=== PATIENT | male | born 1985 | race African-American/Black ===

== ENCOUNTER 2017-07-23 10:33 | Inpatient (IN) | payer OTHER ==
[~2017-07-23] VITALS: Ht 180.3 cm; Wt 120.2 kg
[~2017-07-23 10:33] MED LIST: NKM; ONDANSETRON ODT4 MG ORAL
--- NOTE | 2017-07-23 10:37 | Emergency Room Report ---
History of Present Illness General Chief Complaint: Abdominal Pain Source: Patient, Family Member, EMS Present Illness HPI 31-year-old male brought in by ambulance with nausea and high blood pressure. Patient recently moved here from [place], where he was hospitalized and saw a doctor for "kidney failure" likely due to known high blood pressure. Patient takes hydralazine, nifedipine, labetalol and clonidine as needed for blood pressure greater than 160/80. Patient to call his blood pressure medication this morning except for clonidine. Patient not currently on dialysis. Was told that kidney function at its worse had gone down to 20% however improved to 40% with dieting, exercise and treatment for high blood pressure. Nausea not associated with abdominal pain, diarrhea or vomiting. Per doctor in , serum Creat 2.4 baseline, GFR 41 Allergies: Coded Allergies: No Known Allergies (Unverified , 07/08/12) Patient History Past Medical History: HTN, renal disease, other - renal disease not on HD Past Surgical History: none Pertinent Family History: none Social History: Denies: smoking, alcohol use, drug use Immunizations: UTD Reviewed Nursing Documentation: PMH: Agreed, PSxH: Agreed Nursing Documentation-PMH Hx Hypertension: Yes Review of Systems All Other Systems: negative except mentioned in HPI Physical Exam Vital Signs Date Time Temp Pulse Resp B/P (MAP) Pulse Ox O2 Delivery O2 Flow Rate FiO2 07/23/17 10:28 98.7 80 16 165/111 99 Room Air 98.8 Sp02 EP Interpretation: reviewed, normal General Appearance: normal inspection, well appearing, no apparent distress, alert, GCS 15, non-toxic Head: normocephalic, atraumatic Eyes: bilateral eye PERRL, bilateral eye EOMI ENT: normal ENT inspection, hearing grossly normal, normal pharynx, no angioedema, normal voice, TMs + canals normal, uvula midline, moist mucus membranes Neck: normal inspection, full range of motion, supple, thyroid normal, no meningismus, no bony tend Respiratory: normal inspection, lungs clear, normal breath sounds, no rhonchi, no respiratory distress, no retraction, no accessory muscle use, no wheezing, speaking full sentences Cardiovascular #1: regular rate, rhythm, no edema, no JVD, normal capillary refill Gastrointestinal: normal inspection, normal bowel sounds, non tender, soft, no mass, no peritonitis, non-distended, no guarding, no hernia, no pulsatile mass Genitourinary: no CVA tenderness Musculoskeletal: normal inspection, back normal, normal range of motion, no calf tenderness, pelvis stable, Oskar's Sign negative Neurologic: normal inspection, alert, oriented x3, responsive, thread drawer III-XII nml as tested, motor strength/tone normal, cerebellar normal, normal gait, speech normal Psychiatric: normal inspection, judgement/insight normal, mood/affect normal, no suicidal/homicidal ideation, no delusions Skin: normal inspection, normal color, no rash Lymphatic: normal inspection, no adenopathy Medical Decision Making Diagnostic Impression: Primary Impression: HTN (hypertension) Qualified Codes: I15.0 - Renovascular hypertension Additional Impressions: Nausea CKD (chronic kidney disease) Qualified Codes: N18.9 - Chronic kidney disease, unspecified Hypertensive emergency without congestive heart failure ER Course Blood pressure 180/110 Afebrile Abdomen nonfocal Elevated blood pressure likely due to renal disease Was given IV hydralazine in ER Labs: serum creatine is 2.3, slightly improved from baseline Was given IV labetalol IV hydralazine and by mouth clonidine without much improvement in BP refractory due to known CK D Patient remains asymptomatic Pressure currently 160/[address] Funez, panel admission Telemetry bed, 1:06 PM EKG Diagnostic Results Rate: normal Rhythm: NSR ST Segments: no acute changes ASA given to the pt in ED: No Rhythm Strip Diag. Results EP Interpretation: yes Rate: 79 Rhythm: NSR, no PVC's, no ectopy Chest X-Ray Diagnostic Results Chest X-Ray Diagnostic Results : Chest X-Ray Ordered: Yes # of Views/Limited/Complete: 1 View Indication: Other - nausea EP Interpretation: Yes Interpretation: no consolidation, no effusion, no pneumothorax, no acute cardiopulmonary disease Impression: No acute disease Electronically Signed by: Dr Marv Perez MD Last Vital Signs Date Time Temp Pulse Resp B/P (MAP) Pulse Ox O2 Delivery O2 Flow Rate FiO2 07/23/17 10:28 98.7 80 16 165/111 99 Room Air 98.8 Status: improved Disposition: ADMITTED INPATIENT Condition: Serious MARV PEREZ M.D. Jul 23, 2017 10:37
[2017-07-23 10:46] VITALS: BP 184/118
[2017-07-23] MEDS ORDERED: CATAPRES0.1 MG ORAL (11:20)
[2017-07-23] MEDS ORDERED: HYDRALAZINE HCL50 MG ORAL (11:20)
[2017-07-23] MEDS ORDERED: LABETALOL HCL200 MG ORAL (11:20)
[2017-07-23] MEDS ORDERED: ADALAT10 MG ORAL (11:20)
[2017-07-23] MEDS ORDERED: ALLOPURINOL100 M1 ORAL (11:20)
[2017-07-23 11:21] LABS: BASOPHILS % (AUTO) 1.4 % (0.0-2.0); EOSINOPHILS % (AUTO) 1.2 % (0.0-3.0); HEMATOCRIT 47.5 % (42.0-52.0); HEMOGLOBIN 15.2 G/DL (14.2-18.0); LYMPHOCYTES % (AUTO) 18.4 % (20.0-45.0); MEAN CORPUSCULAR VOLUME 84 FL (80-99); MONOCYTES % (AUTO) 7.1 % (1.0-10.0); NEUTROPHILS % (AUTO) 71.8 % (45.0-75.0); PLATELET COUNT 259 K/UL (150-450); RED BLOOD COUNT 5.68 M/UL (4.70-6.10); RED CELL DISTRIBUTION WIDTH 14.3 % (11.6-14.8); WHITE BLOOD COUNT 8.1 K/UL (4.8-10.8)
[2017-07-23 11:35] LABS: ANION GAP 11 mmol/L (5-15); BLOOD UREA NITROGEN 15 mg/dL (7-18); CALCIUM 9.2 MG/DL (8.5-10.1); CARBON DIOXIDE 24 MMOL/L (21-32); CHLORIDE 104 MMOL/L (98-107); CREATININE 2.3 MG/DL (0.55-1.30); POTASSIUM 3.7 MMOL/L (3.5-5.1); SODIUM 139 MMOL/L (136-145)
[2017-07-23] MEDS ORDERED: Labetalol 5mg/ml 20ml vial IV ONE (11:45)
[2017-07-23 11:52] LABS: ALANINE AMINOTRANSFERASE 29 U/L (12-78); ALBUMIN 3.2 G/DL (3.4-5.0); ALBUMIN/GLOBULIN RATIO 0.8 (1.0-2.7); ALKALINE PHOSPHATASE 107 U/L (46-116); ASPARTATE AMINO TRANSFERASE 17 U/L (15-37); BILIRUBIN,TOTAL 0.5 MG/DL (0.2-1.0); CKMB 1.6 NG/ML (0.0-3.6); CREATINE KINASE 247 U/L (26-308)
--- NOTE | 2017-07-23 11:56 | Diagnostic Imaging Report ---
Indication: Chest pain Technique: One view of the chest Comparison: none Findings: The lungs and pleural spaces are clear. The heart is enlarged. Impression: Cardiomegaly. No acute process
[2017-07-23 11:58] VITALS: BP 168/111
[2017-07-23 13:14] VITALS: BP 163/105
[2017-07-23 14:02] VITALS: BP 157/102
[2017-07-23 16:45] VITALS: BP 148/91
[2017-07-23] MEDS ORDERED: Minoxidil 2.5mg tab ORAL PRN (17:00)
--- NOTE | 2017-07-23 17:01 | Consultation ---
Consult Note Consult Note 31-year-old male brought in by ambulance with nausea and high blood pressure. Patient recently moved here from [place], where he was hospitalized and saw a doctor for "kidney failure" likely due to known high blood pressure. Patient takes hydralazine, nifedipine, labetalol and clonidine as needed for blood pressure greater than 160/80. Patient to call his blood pressure medication this morning except for clonidine. Patient not currently on dialysis. Was told that kidney function at its worse had gone down to 20% however improved to 40% with dieting, exercise and treatment for high blood pressure. Nausea not associated with abdominal pain, diarrhea or vomiting. Per doctor in [place], serum Creat 2.4 baseline, GFR 41 interviewed- MOM present data reviewed . Assessment/Plan CKD HTN OOC Adjust BP meds Kidney ZULMA urine studies SUKHJINDER CARTWRIGHT Jul 23, 2017 17:01
[2017-07-23] MEDS ORDERED: NIFEdipine 10mg cap ORAL SCH ×3 (18:00→20:00)
[2017-07-23 18:41] LABS: APPEARANCE,URINE CLEAR; BILIRUBIN, URINE NEGATIVE (NEGATIVE); COLOR,URINE YELLOW; GLUCOSE, URINE (UA) NEGATIVE (NEGATIVE); KETONES,URINE NEGATIVE (NEGATIVE); LEUKOCYTE ESTERASE ,URINE NEGATIVE (NEGATIVE); NITRITE,URINE NEGATIVE (NEGATIVE); PH,URINE 6 (4.5-8.0); PROTEIN,URINE 4+ (NEGATIVE); UROBILINOGEN,URINE NORMAL MG/DL (0.0-1.0)
[2017-07-23 20:00] VITALS: BP 169/105
--- NOTE | 2017-07-23 20:56 | Cardiology Progress Note ---
Assessment/Plan Assessment/Plan The patient is seen and examined, full consult note will be dictated shortly. Objective Last 24 Hour Vital Signs Date Time Temp Pulse Resp B/P (MAP) Pulse Ox O2 Delivery O2 Flow Rate FiO2 07/23/17 19:06 79 07/23/17 17:35 148/91 07/23/17 16:45 98.2 80 20 148/91 100 Room Air 98.2 07/23/17 14:50 98.8 82 16 157/102 100 Room Air 98.8 07/23/17 14:02 98.8 82 16 157/102 100 Room Air 98.8 07/23/17 13:14 98.8 72 16 163/105 99 Room Air 98.8 07/23/17 11:59 81 168/112 07/23/17 11:58 98.8 83 16 168/111 99 Room Air 98.8 07/23/17 11:28 168/112 07/23/17 11:00 184/118 07/23/17 10:46 98.8 81 16 184/118 99 Room Air 98.8 07/23/17 10:28 98.7 80 16 165/111 99 Room Air 98.8 Laboratory Tests Test 07/23/17 11:00 07/23/17 18:20 White Blood Count 8.1 K/UL (4.8-10.8) Red Blood Count 5.68 M/UL (4.70-6.10) Hemoglobin 15.2 G/DL (14.2-18.0) Hematocrit 47.5 % (42.0-52.0) Mean Corpuscular Volume 84 FL (80-99) Mean Corpuscular Hemoglobin 26.8 PG (27.0-31.0) L Mean Corpuscular Hemoglobin Concent 32.0 G/DL (32.0-36.0) Red Cell Distribution Width 14.3 % (11.6-14.8) Platelet Count 259 K/UL (150-450) Mean Platelet Volume 6.7 FL (6.5-10.1) Neutrophils (%) (Auto) 71.8 % (45.0-75.0) Lymphocytes (%) (Auto) 18.4 % (20.0-45.0) L Monocytes (%) (Auto) 7.1 % (1.0-10.0) Eosinophils (%) (Auto) 1.2 % (0.0-3.0) Basophils (%) (Auto) 1.4 % (0.0-2.0) Sodium Level 139 MMOL/L (136-145) Potassium Level 3.7 MMOL/L (3.5-5.1) Chloride Level 104 MMOL/L (98-107) Carbon Dioxide Level 24 MMOL/L (21-32) Anion Gap 11 mmol/L (5-15) Blood Urea Nitrogen 15 mg/dL (7-18) Creatinine 2.3 MG/DL (0.55-1.30) H Estimat Glomerular Filtration Rate 41.0 mL/min (>60) Glucose Level 102 MG/DL (74-106) Calcium Level 9.2 MG/DL (8.5-10.1) Total Bilirubin 0.5 MG/DL (0.2-1.0) Aspartate Amino Transf (AST/SGOT) 17 U/L (15-37) Alanine Aminotransferase (ALT/SGPT) 29 U/L (12-78) Alkaline Phosphatase 107 U/L (46-116) Total Creatine Kinase 247 U/L (26-308) Creatine Kinase MB 1.6 NG/ML (0.0-3.6) Creatine Kinase MB Relative Index 0.6 Troponin I 0.014 ng/mL (0.000-0.056) Total Protein 7.1 G/DL (6.4-8.2) Albumin 3.2 G/DL (3.4-5.0) L Globulin 3.9 g/dL Albumin/Globulin Ratio 0.8 (1.0-2.7) L Urine Color Yellow Urine Appearance Clear Urine pH 6 (4.5-8.0) Urine Specific [place] 1.020 (1.005-1.035) Urine Protein 4+ (NEGATIVE) H Urine Glucose (UA) Negative (NEGATIVE) Urine Ketones Negative (NEGATIVE) Urine Occult Blood Negative (NEGATIVE) Urine Nitrite Negative (NEGATIVE) Urine Bilirubin Negative (NEGATIVE) Urine Urobilinogen Normal MG/DL (0.0-1.0) Urine Leukocyte Esterase Negative (NEGATIVE) Urine RBC 0-2 /HPF (0 - 0) H Urine WBC 0-2 /HPF (0 - 0) Urine Squamous Epithelial Cells None /LPF (NONE/OCC) Urine Bacteria None /HPF (NONE) Urine Opiates Screen Negative (NEGATIVE) Urine Barbiturates Screen Negative (NEGATIVE) Phencyclidine (PCP) Screen Negative (NEGATIVE) Urine Amphetamines Screen Negative (NEGATIVE) Urine Benzodiazepines Screen Negative (NEGATIVE) Urine Cocaine Screen Negative (NEGATIVE) Urine Marijuana (THC) Screen Positive (NEGATIVE) WILLIAM NICK Jul 23, 2017 20:56
[2017-07-23] MEDS ORDERED: HydrALAZINE 50mg tab ORAL SCH (22:00)
[2017-07-23] MEDS ORDERED: Labetalol 200mg tab ORAL SCH (22:00)
[2017-07-23] MEDS: HydrALAZINE 50mg tab ORAL SCH (22:22)
[2017-07-23] MEDS: cloNIDine 0.2mg Tab ORAL SCH (22:23)
[2017-07-24] VITALS: BP 160/100
[2017-07-24 04:00] VITALS: BP 136/91
[2017-07-24] MEDS: HydrALAZINE 50mg tab ORAL SCH ×3 (06:13→21:47)
[2017-07-24] MEDS: cloNIDine 0.2mg Tab ORAL SCH ×3 (06:14→21:47)
[2017-07-24 08:00] VITALS: BP 154/84
[2017-07-24 08:23] LABS: BASOPHILS % (AUTO) 1.2 % (0.0-2.0); EOSINOPHILS % (AUTO) 2.6 % (0.0-3.0); HEMATOCRIT 44.8 % (42.0-52.0); HEMOGLOBIN 14.6 G/DL (14.2-18.0); LYMPHOCYTES % (AUTO) 24.1 % (20.0-45.0); MEAN CORPUSCULAR VOLUME 84 FL (80-99); NEUTROPHILS % (AUTO) 64.2 % (45.0-75.0); PLATELET COUNT 239 K/UL (150-450); RED BLOOD COUNT 5.33 M/UL (4.70-6.10); WHITE BLOOD COUNT 7.1 K/UL (4.8-10.8)
[2017-07-24] MEDS ORDERED: Allopurinol 100mg Tab ORAL SCH (09:00)
[2017-07-24 09:03] LABS: ALANINE AMINOTRANSFERASE 23 U/L (12-78); ALBUMIN/GLOBULIN RATIO 0.9 (1.0-2.7); ALKALINE PHOSPHATASE 96 U/L (46-116); ANION GAP 7 mmol/L (5-15); ASPARTATE AMINO TRANSFERASE 12 U/L (15-37); BILIRUBIN,TOTAL 0.5 MG/DL (0.2-1.0); BLOOD UREA NITROGEN 15 mg/dL (7-18); CALCIUM 8.6 MG/DL (8.5-10.1); CARBON DIOXIDE 25 MMOL/L (21-32); CHLORIDE 105 MMOL/L (98-107); CHOLESTEROL 135 MG/DL (< 200); CREATINE KINASE 174 U/L (26-308); CREATININE 2.3 MG/DL (0.55-1.30); GAMMA GLUTAMYL TRANSPEPTIDASE 20 U/L (5-85); HDL CHOLESTEROL 38 MG/DL (40-60); PHOSPHORUS 3.4 MG/DL (2.5-4.9); POTASSIUM 3.8 MMOL/L (3.5-5.1); SODIUM 137 MMOL/L (136-145); TRIGLYCERIDES 89 MG/DL (30-150)
--- NOTE | 2017-07-24 10:06 | Nephrology Progress Note ---
Assessment/Plan Problem List: (1) CKD (chronic kidney disease) (2) Hypertensive emergency without congestive heart failure Assessment CKD HTN OOC Plan Adjust BP meds Kidney ZULMA urine studies ? Dc Subjective ROS Limited/Unobtainable: No Objective Objective Last 24 Hour Vital Signs Date Time Temp Pulse Resp B/P (MAP) Pulse Ox O2 Delivery O2 Flow Rate FiO2 07/24/17 08:00 98.1 76 18 154/84 98 Room Air 98.1 07/24/17 06:14 140/78 07/24/17 06:13 140/78 07/24/17 04:00 98.4 78 20 136/91 98 Room Air 98.4 07/24/17 04:00 70 07/24/17 00:00 98.4 72 20 160/100 100 Room Air 98.4 07/24/17 00:00 80 07/23/17 22:23 170/105 07/23/17 22:22 170/105 07/23/17 21:10 79 169/105 07/23/17 20:00 98.2 71 20 169/105 100 Room Air 98.2 07/23/17 20:00 86 07/23/17 19:06 79 07/23/17 17:35 148/91 07/23/17 16:45 98.2 80 20 148/91 100 Room Air 98.2 07/23/17 14:50 98.8 82 16 157/102 100 Room Air 98.8 07/23/17 14:02 98.8 82 16 157/102 100 Room Air 98.8 07/23/17 13:14 98.8 72 16 163/105 99 Room Air 98.8 07/23/17 11:59 81 168/112 07/23/17 11:58 98.8 83 16 168/111 99 Room Air 98.8 07/23/17 11:28 168/112 07/23/17 11:00 184/118 07/23/17 10:46 98.8 81 16 184/118 99 Room Air 98.8 07/23/17 10:28 98.7 80 16 165/111 99 Room Air 98.8 Intake and Output 07/23/17 07/24/17 19:00 07:00 Intake Total 360 ml Balance 360 ml Intake Oral 360 ml # Voids 1 4 Laboratory Tests 07/23/17 11:00: White Blood Count 8.1, Red Blood Count 5.68, Hemoglobin 15.2, Hematocrit 47.5, Mean Corpuscular Volume 84, Mean Corpuscular Hemoglobin 26.8L, Mean Corpuscular Hemoglobin Concent 32.0, Red Cell Distribution Width 14.3, Platelet Count 259, Mean Platelet Volume 6.7, Neutrophils (%) (Auto) 71.8, Lymphocytes (%) (Auto) 18.4L, Monocytes (%) (Auto) 7.1, Eosinophils (%) (Auto) 1.2, Basophils (%) (Auto ) 1.4, Sodium Level 139, Potassium Level 3.7, Chloride Level 104, Carbon Dioxide Level 24, Anion Gap 11, Blood Urea Nitrogen 15, Creatinine 2.3H, Estimat Glomerular Filtration Rate 41.0, Glucose Level 102, Calcium Level 9.2, Total Bilirubin 0.5, Aspartate Amino Transf (AST/SGOT) 17, Alanine Aminotransferase (ALT/SGPT) 29, Alkaline Phosphatase 107, Total Creatine Kinase 247, Creatine Kinase MB 1.6, Creatine Kinase MB Relative Index 0.6, Troponin I 0.014, Total Protein 7.1, Albumin 3.2L, Globulin 3.9, Albumin/Globulin Ratio 0.8L 07/23/17 18:20: Urine Color Yellow, Urine Appearance Clear, Urine pH 6, Urine Specific [place] 1.020, Urine Protein 4+H, Urine Glucose (UA) Negative, Urine Ketones Negative, Urine Occult Blood Negative, Urine Nitrite Negative, Urine Bilirubin Negative, Urine Urobilinogen Normal, Urine Leukocyte Esterase Negative, Urine RBC 0-2H, Urine WBC 0-2, Urine Squamous Epithelial Cells None, Urine Bacteria None, Urine Opiates Screen Negative, Urine Barbiturates Screen Negative, Phencyclidine (PCP ) Screen Negative, Urine Amphetamines Screen Negative, Urine Benzodiazepines Screen Negative, Urine Cocaine Screen Negative, Urine Marijuana (THC) Screen PositiveH 07/24/17 07:45: White Blood Count 7.1, Red Blood Count 5.33, Hemoglobin 14.6, Hematocrit 44.8, Mean Corpuscular Volume 84, Mean Corpuscular Hemoglobin 27.5, Mean Corpuscular Hemoglobin Concent 32.7, Red Cell Distribution Width 14.0, Platelet Count 239, Mean Platelet Volume 7.2, Neutrophils (%) (Auto) 64.2, Lymphocytes (%) (Auto) 24.1, Monocytes (%) (Auto) 8.0, Eosinophils (%) (Auto) 2.6, Basophils (%) (Auto ) 1.2, Sodium Level 137, Potassium Level 3.8, Chloride Level 105, Carbon Dioxide Level 25, Anion Gap 7, Blood Urea Nitrogen 15, Creatinine 2.3H, Estimat Glomerular Filtration Rate 41.0, Glucose Level 99, Calcium Level 8.6, Total Bilirubin 0.5, Aspartate Amino Transf (AST/SGOT) 12L, Alanine Aminotransferase ( ALT/SGPT) 23, Alkaline Phosphatase 96, Total Creatine Kinase 174, Troponin I 0.000, Total Protein 6.5, Albumin 3.0L, Globulin 3.5, Albumin/Globulin Ratio 0.9L, Hemoglobin A1c 5.5, Uric Acid 6.3, Phosphorus Level 3.4, Magnesium Level 2.2, Gamma Glutamyl Transpeptidase 20, C-Reactive Protein, Quantitative 2.1H, Pro-B-Type Natriuretic Peptide 183H, Triglycerides Level 89, Cholesterol Level 135, LDL Cholesterol 92, HDL Cholesterol 38L, Cholesterol/HDL Ratio 3.6, Thyroid Stimulating Hormone (TSH) 1.697 Height (Feet): 5 Height (Inches): 11.00 Weight (Pounds): 265 General Appearance: no apparent distress - change SUKHJINDER CARTWRIGHT Jul 24, 2017 10:06
[2017-07-24] MEDS: Allopurinol 100mg Tab ORAL SCH (10:19)
[2017-07-24 12:00] VITALS: BP 156/108
[2017-07-24] MEDS: Labetalol 200mg tab ORAL SCH (12:17)
--- NOTE | 2017-07-24 14:09 | Cardiology Report ---
APPROVED REPORT EXAM: Two-dimensional and M-mode echocardiogram with Doppler and color Doppler. INDICATION Hypertension/HCVD M-Mode DIMENSIONS IVSd1.6 (0.7-1.1cm)Left Atrium (MM)3.0 (1.6-4.0cm) LVDd5.7 (3.5-5.6cm)Aortic Root4.2 (2.0-3.7cm) PWd1.4 (0.7-1.1cm)Aortic Cusp Exc.2.1 (1.5-2.0cm) IVSs2.5 cm LVDs3.3 (2.5-4.0cm) PWs1.9 cm Normal left ventricular chamber size, systolic function and wall motion. Left ventricular ejection fraction estimated to be 70%. Moderate left ventricular hypertrophy by 2-D . No evidence of pericardial effusion. Right atrial size at upper limits of normal. Right ventricular chamber sizes is within normal limits. Focal aortic valve sclerosis with adequate cusp excursion. Mildly Thickened mitral valve leaflets with normal excursion. Mildly Mitral annulus and aortic root calcification. Pulmonic valve not well visualized. Normal tricuspid valve structure. IVC at size 2.1 with physiologic collapse. A color flow and spectral Doppler study was performed and revealed: No aortic regurgitation. Trace mitral regurgitation. Mitral diastolic velocities suggest reduced left ventricular relaxation c/w mild LV diastolic dysfunction (Grade I ). Trace tricuspid regurgitation. Tricuspid systolic velocities suggests peak right ventricular systolic pressure of 25 mmHg, No Pulmonic regurgitation present.
--- NOTE | 2017-07-24 15:58 | Cardiology Report ---
APPROVED REPORT EKG Measurement Heart [id number] Normal sinus rhythm Normal ECG
[2017-07-24 16:00] VITALS: BP 136/94
[2017-07-24] MEDS ORDERED: LORazepam Inj 2mg/ml 1ml IV PRN (18:00)
[2017-07-24 20:00] VITALS: BP 158/95
--- NOTE | 2017-07-24 23:37 | Cardiology Progress Note ---
Assessment/Plan Assessment/Plan 1. Accelerated hypertension, continue hydralazine, nifedipine, labetalol, and clonidine. 2. Chronic kidney disease. Subjective Subjective Sinus rhythm at 80. Denies chest pain or SOB. Objective Last 24 Hour Vital Signs Date Time Temp Pulse Resp B/P (MAP) Pulse Ox O2 Delivery O2 Flow Rate FiO2 07/24/17 22:52 71 07/24/17 21:47 158/92 07/24/17 21:47 158/92 07/24/17 21:46 80 158/92 07/24/17 20:00 97.9 71 20 158/95 94 Room Air 97.9 07/24/17 16:00 78 07/24/17 16:00 98.4 60 18 136/94 96 Room Air 98.4 07/24/17 14:24 150/94 07/24/17 14:24 150/94 07/24/17 12:17 80 151/93 07/24/17 12:00 98.2 90 18 156/108 94 Room Air 98.2 07/24/17 12:00 79 07/24/17 08:00 98.1 76 18 154/84 98 Room Air 98.1 07/24/17 08:00 79 07/24/17 06:14 140/78 07/24/17 06:13 140/78 07/24/17 04:00 98.4 78 20 136/91 98 Room Air 98.4 07/24/17 04:00 70 07/24/17 00:00 98.4 72 20 160/100 100 Room Air 98.4 07/24/17 00:00 80 Intake and Output 07/23/17 07/24/17 19:00 07:00 Intake Total 360 ml Balance 360 ml Intake Oral 360 ml # Voids 1 4 2D Echo: LVEF 70%, Mod LVH, Grade I LVDD, RVSP 25 mmHg Laboratory Tests Test 07/24/17 07:45 White Blood Count 7.1 K/UL (4.8-10.8) Red Blood Count 5.33 M/UL (4.70-6.10) Hemoglobin 14.6 G/DL (14.2-18.0) Hematocrit 44.8 % (42.0-52.0) Mean Corpuscular Volume 84 FL (80-99) Mean Corpuscular Hemoglobin 27.5 PG (27.0-31.0) Mean Corpuscular Hemoglobin Concent 32.7 G/DL (32.0-36.0) Red Cell Distribution Width 14.0 % (11.6-14.8) Platelet Count 239 K/UL (150-450) Mean Platelet Volume 7.2 FL (6.5-10.1) Neutrophils (%) (Auto) 64.2 % (45.0-75.0) Lymphocytes (%) (Auto) 24.1 % (20.0-45.0) Monocytes (%) (Auto) 8.0 % (1.0-10.0) Eosinophils (%) (Auto) 2.6 % (0.0-3.0) Basophils (%) (Auto) 1.2 % (0.0-2.0) Sodium Level 137 MMOL/L (136-145) Potassium Level 3.8 MMOL/L (3.5-5.1) Chloride Level 105 MMOL/L (98-107) Carbon Dioxide Level 25 MMOL/L (21-32) Anion Gap 7 mmol/L (5-15) Blood Urea Nitrogen 15 mg/dL (7-18) Creatinine 2.3 MG/DL (0.55-1.30) H Estimat Glomerular Filtration Rate 41.0 mL/min (>60) Glucose Level 99 MG/DL (74-106) Hemoglobin A1c 5.5 % (4.3-6.0) Uric Acid 6.3 MG/DL (2.6-7.2) Calcium Level 8.6 MG/DL (8.5-10.1) Phosphorus Level 3.4 MG/DL (2.5-4.9) Magnesium Level 2.2 MG/DL (1.8-2.4) Total Bilirubin 0.5 MG/DL (0.2-1.0) Gamma Glutamyl Transpeptidase 20 U/L (5-85) Aspartate Amino Transf (AST/SGOT) 12 U/L (15-37) L Alanine Aminotransferase (ALT/SGPT) 23 U/L (12-78) Alkaline Phosphatase 96 U/L (46-116) Total Creatine Kinase 174 U/L (26-308) Troponin I 0.000 ng/mL (0.000-0.056) C-Reactive Protein, Quantitative 2.1 mg/dL (0.00-0.90) H Pro-B-Type Natriuretic Peptide 183 pg/mL (0-125) H Total Protein 6.5 G/DL (6.4-8.2) Albumin 3.0 G/DL (3.4-5.0) L Globulin 3.5 g/dL Albumin/Globulin Ratio 0.9 (1.0-2.7) L Triglycerides Level 89 MG/DL (30-150) Cholesterol Level 135 MG/DL (< 200) LDL Cholesterol 92 mg/dL (<100) HDL Cholesterol 38 MG/DL (40-60) L Cholesterol/HDL Ratio 3.6 (3.3-4.4) Thyroid Stimulating Hormone (TSH) 1.697 uiU/mL (0.358-3.740) Objective HEENT: Atraumatic and normocephalic. Anicteric. Pupils are equal, round, and reactive to light and accommodation. Extraocular muscles intact. NECK: JVP less than 5 cm. No carotid bruit. CVS: Normal S1. Loud S2. Positive S4. No murmurs or rubs. LUNGS: Clear to auscultation bilaterally. ABDOMEN: Soft, nontender, and nondistended. No hepatosplenomegaly. Positive bowel sounds. EXTREMITIES: No evidence of edema, clubbing, or cyanosis. WILLIAM MARCH Jul 24, 2017 23:37
[2017-07-25 00:43] VITALS: BP 154/96
[2017-07-25] MEDS: Labetalol 200mg tab ORAL SCH ×4 (01:16→22:00)
[2017-07-25 04:00] VITALS: BP 137/74
[2017-07-25] MEDS: HydrALAZINE 50mg tab ORAL SCH ×3 (05:50→23:06)
[2017-07-25] MEDS: cloNIDine 0.2mg Tab ORAL SCH ×3 (05:50→23:08)
[2017-07-25 08:00] VITALS: BP 132/80
--- NOTE | 2017-07-25 08:45 | History and Physical Report ---
DATE OF ADMISSION: 07/23/2017 NOTE: POOR AUDIO HISTORY OF PRESENT ILLNESS: The patient has past history of anxiety, comes in with refractory hypertension CKD, not on dialysis, uncontrollable/retractable hypertension . The patient does have occasional dizziness and headache. Denies nausea, vomiting, or diarrhea. No fever or chills. The patient also has . ALLERGIES: No known allergies. PAST MEDICAL HISTORY: Hypertension and chronic renal insufficiency. History of . PAST SURGICAL HISTORY: None. MEDICATIONS: . SOCIAL HISTORY: Denies history of smoking, alcohol, or illicit drugs. FAMILY HISTORY: hypertension. REVIEW OF SYSTEMS: HEENT: Denies headaches. RESPIRATORY: Denies shortness of breath or cough. CARDIOVASCULAR: Denies chest pain. Denies . EXTREMITIES: Denies any lower extremity pain. CENTRAL NERVOUS SYSTEM: No change in vision or speech pattern. He does have some headache and dizziness and vertigo. PHYSICAL EXAMINATION: VITAL SIGNS: Temperature 98.4 degrees, pulse 60, and blood pressure 151/94. HEENT: PERRLA. NECK: Supple. No lymphadenopathy. CHEST: Clear to auscultation. GASTROINTESTINAL: Soft, nontender, and nondistended. No organomegaly. EXTREMITIES: No edema. Moves all four extremities. NEUROLOGIC: Reflexes equal on both sides. LABORATORY DATA: Creatinine was 2.3 and BUN of 15 ASSESSMENT AND PLAN: 1. Chronic renal insufficiency . 2. Refractory hypertension. 3. Anxiety. 4. I have asked Dr. Willams, Dr. England, and Dr. Mast to see the patient for the above-mentioned diagnoses and treatment. . Michaelle Vernon M.D. DR: ISAAC JOB#: [id number] CC:
[2017-07-25] MEDS: Allopurinol 100mg Tab ORAL SCH (09:14)
--- NOTE | 2017-07-25 09:43 | Diagnostic Imaging Report ---
Indication: Acute renal failure Technique: Grayscale and duplex images of the kidneys, retroperitoneum, and bladder were obtained. Comparison: none Findings: Right kidney measures 11 cm in length. Left kidney measures 9.6 cm in length. Both kidneys demonstrate normal echogenicity. No hydronephrosis. 6. Normal inferior vena cava. Bladder is unremarkable, demonstrates prevoid volume of 77 mL, postvoid volume of 15 mL. Impression: Negative for hydronephrosis 15 mL postvoid bladder volume.
--- NOTE | 2017-07-25 11:58 | Consultation ---
History of Present Illness General Date patient seen: Jul 25, 2017 Chief Complaint: Abdominal Pain Present Illness HPI 31-year-old male with hx of cannabis abuse who was brought in by ambulance with nausea and high blood pressure. Patient recently moved here from [place], where he was hospitalized and saw a doctor for "kidney failure" the pt was anxious and guarded. the pt became irritable and angry when I spoke to him in regards to cannabis. the pt has insomnia and anxiety and self medicates with weed. the pt s mom asked me to order ssris for the pt. then the pt disagreed. no si/hi Allergies: Coded Allergies: No Known Allergies (Unverified , 07/08/12) Medication History Scheduled Allopurinol* (Allopurinol*), 100 MG ORAL DAILY, (Reported) Clonidine Hcl* (Catapres*), 0.1 MG ORAL EVERY 6 HOURS, (Reported) Hydralazine Hcl* (Hydralazine Hcl*), 50 MG ORAL EVERY 8 HOURS, (Reported) Labetalol Hcl* (Normodyne*), 200 MG ORAL THREE TIMES A DAY, (Reported) Nifedipine (Nifedipine*), 30 MG ORAL BID, (Reported) No Known Medications* (NKM - No Known Medications*), 0 ., (Reported) Ondansetron Odt* (Zofran Odt*), 4 MG ORAL EVERY 8 HOURS Patient History Limited by: medical condition History Provided By: Patient, Family Member, Medical Record, PMD Healthcare decision maker Resuscitation status Full Code Advanced Directive on File No Past Medical/Surgical History Past Medical/Surgical History: (1) Minor head injury (2) Scalp hematoma (3) Minor head injury (4) Abdominal pain (5) Nausea (6) CKD (chronic kidney disease) (7) Hypertensive emergency without congestive heart failure (8) HTN (hypertension) Review of Systems Psychiatric: Reports: prior hx, anxiety, depressed feelings, emotional problems Physical Exam General Appearance: WD/WN, no apparent distress, alert Neurologic: alert, oriented x 3, responsive, depressed affect Last 24 Hour Vital Signs Date Time Temp Pulse Resp B/P (MAP) Pulse Ox O2 Delivery O2 Flow Rate FiO2 07/25/17 09:13 80 133/80 07/25/17 08:00 98.4 80 20 132/80 97 Room Air 98.4 07/25/17 05:50 62 137/74 07/25/17 05:50 137/74 07/25/17 05:50 137/74 07/25/17 04:00 62 07/25/17 04:00 98.0 72 20 137/74 98 Room Air 98.0 07/25/17 01:16 80 154/96 07/25/17 00:45 76 07/25/17 00:43 98.0 76 20 154/96 96 Room Air 98.0 07/24/17 22:52 71 07/24/17 21:47 158/92 07/24/17 21:47 158/92 07/24/17 21:46 80 158/92 07/24/17 20:00 97.9 71 20 158/95 94 Room Air 97.9 07/24/17 16:00 78 07/24/17 16:00 98.4 60 18 136/94 96 Room Air 98.4 07/24/17 14:24 150/94 07/24/17 14:24 150/94 07/24/17 12:17 80 151/93 07/24/17 12:00 98.2 90 18 156/108 94 Room Air 98.2 07/24/17 12:00 79 Intake and Output 07/24/17 07/25/17 19:00 07:00 # Voids 2 Height (Feet): 5 Height (Inches): 11.00 Weight (Pounds): 265 Medications Current Medications Medications (Trade) Dose Ordered Sig/Ishaan Route PRN Reason Start Time Stop Time Status Last Admin Dose Admin Acetaminophen (Tylenol) 650 mg Q4H PRN ORAL Mild Pain/Temp > 100.5 07/23/17 15:45 08/22/17 15:44 Allopurinol (Zyloprim) 100 mg DAILY ORAL 07/24/17 09:00 08/23/17 08:59 07/25/17 09:14 Clonidine HCl (Catapres tab) 0.2 mg EVERY 8 HOURS ORAL 07/23/17 22:00 08/22/17 21:59 07/25/17 05:50 Hydralazine HCl (Apresoline) 50 mg EVERY 8 HOURS ORAL 07/23/17 22:00 08/22/17 21:59 07/25/17 05:50 Labetalol HCl (Normodyne) 200 mg Q8HR ORAL 07/24/17 13:00 08/23/17 12:59 07/25/17 05:50 Lorazepam (Ativan 2mg/ml 1ml) 1 mg Q6H PRN IV For Anxiety 07/24/17 18:00 07/31/17 17:59 Minoxidil (Loniten) 2.5 mg Q4H PRN ORAL bp over 160 syst 07/23/17 17:00 08/22/17 16:59 Nifedipine (Procardia XL) 60 mg Q12HR ORAL 07/24/17 21:00 08/23/17 20:59 07/25/17 09:13 Assessment/Plan Status: stable Assessment/Plan anxiety d/o cannabis dependence ativan 1mg po prn Kimani Mast M.D. Jul 25, 2017 11:58
--- NOTE | 2017-07-25 13:54 | Nephrology Progress Note ---
Assessment/Plan Problem List: (1) CKD (chronic kidney disease) (2) Hypertensive emergency without congestive heart failure Assessment CKD HTN OOC Plan BP meds adjusted Kidney ZULMA and 2D Echo reviewed urine studies ? Dc fu with out patient MD / Respite Care Provider Subjective ROS Limited/Unobtainable: No Objective Objective Last 24 Hour Vital Signs Date Time Temp Pulse Resp B/P (MAP) Pulse Ox O2 Delivery O2 Flow Rate FiO2 07/25/17 13:48 70 124/59 07/25/17 13:48 124/59 07/25/17 13:48 124/59 07/25/17 09:13 80 133/80 07/25/17 08:00 98.4 80 20 132/80 97 Room Air 98.4 07/25/17 05:50 62 137/74 07/25/17 05:50 137/74 07/25/17 05:50 137/74 07/25/17 04:00 62 07/25/17 04:00 98.0 72 20 137/74 98 Room Air 98.0 07/25/17 01:16 80 154/96 07/25/17 00:45 76 07/25/17 00:43 98.0 76 20 154/96 96 Room Air 98.0 07/24/17 22:52 71 07/24/17 21:47 158/92 07/24/17 21:47 158/92 07/24/17 21:46 80 158/92 07/24/17 20:00 97.9 71 20 158/95 94 Room Air 97.9 07/24/17 16:00 78 07/24/17 16:00 98.4 60 18 136/94 96 Room Air 98.4 07/24/17 14:24 150/94 07/24/17 14:24 150/94 Intake and Output 07/24/17 07/25/17 19:00 07:00 # Voids 2 Current Medications Medications (Trade) Dose Ordered Sig/Ishaan Route PRN Reason Start Time Stop Time Status Last Admin Dose Admin Acetaminophen (Tylenol) 650 mg Q4H PRN ORAL Mild Pain/Temp > 100.5 07/23/17 15:45 08/22/17 15:44 Allopurinol (Zyloprim) 100 mg DAILY ORAL 07/24/17 09:00 08/23/17 08:59 07/25/17 09:14 Clonidine HCl (Catapres tab) 0.2 mg EVERY 8 HOURS ORAL 07/23/17 22:00 08/22/17 21:59 07/25/17 13:48 Hydralazine HCl (Apresoline) 50 mg EVERY 8 HOURS ORAL 07/23/17 22:00 08/22/17 21:59 07/25/17 13:48 Labetalol HCl (Normodyne) 200 mg Q8HR ORAL 07/24/17 13:00 08/23/17 12:59 07/25/17 13:48 Lorazepam (Ativan 2mg/ml 1ml) 1 mg Q6H PRN IV For Anxiety 07/24/17 18:00 07/31/17 17:59 Minoxidil (Loniten) 2.5 mg Q4H PRN ORAL bp over 160 syst 07/23/17 17:00 08/22/17 16:59 Nifedipine (Procardia XL) 60 mg Q12HR ORAL 07/24/17 21:00 08/23/17 20:59 07/25/17 09:13 Height (Feet): 5 Height (Inches): 11.00 Weight (Pounds): 265 General Appearance: no apparent distress SUKHJINDER CARTWRIGHT 15, 2018 13:54
[2017-07-25] MEDS ORDERED: CLONIDINE 0.2M0.2 MG ORAL (13:56)
[2017-07-25] MEDS ORDERED: PROCARDIA XL30 MG ORAL (13:56)
--- NOTE | 2017-07-25 13:57 | Discharge Instructions ---
Discharge Instructions Discharge Instructions Follow up with: follow up with PMD / OP Kidney MD Diet: renal (80g protein, 2GM) Special Instructions see MD OP within 5-7 days For Congestive Heart Failure Reminder Report to your physician any weight gain of 5 pounds or more in one week. SUKHJINDER CARTWRIGHT Jul 25, 2017 13:57
[2017-07-25 16:00] VITALS: BP 121/68
[2017-07-25 20:00] VITALS: BP 142/75
--- NOTE | 2017-07-25 21:44 | General Progress Note ---
Assessment/Plan Problem List: (1) Hypertensive emergency without congestive heart failure ICD Codes: I16.1 - Hypertensive emergency SNOMED: 097209627906295 (2) HTN (hypertension) ICD Codes: I10 - Essential (primary) hypertension SNOMED: 04285054 Qualifiers: Qualified Codes: I15.0 - Renovascular hypertension Status: progressing Assessment/Plan refractory htn no headache or visual changes afebrile no encephalpathy Subjective ROS Limited/Unobtainable: Yes Allergies: Coded Allergies: No Known Allergies (Unverified , 07/08/12) Objective Last 24 Hour Vital Signs Date Time Temp Pulse Resp B/P (MAP) Pulse Ox O2 Delivery O2 Flow Rate FiO2 07/25/17 20:32 71 142/75 07/25/17 20:00 98.4 71 20 142/75 98 Room Air 98.4 07/25/17 16:00 77 07/25/17 16:00 98.1 78 20 121/68 99 Room Air 98.1 07/25/17 13:48 70 124/59 07/25/17 13:48 124/59 07/25/17 13:48 124/59 07/25/17 12:00 73 07/25/17 09:13 80 133/80 07/25/17 08:00 74 07/25/17 08:00 98.4 80 20 132/80 97 Room Air 98.4 07/25/17 05:50 62 137/74 07/25/17 05:50 137/74 07/25/17 05:50 137/74 07/25/17 04:00 62 07/25/17 04:00 98.0 72 20 137/74 98 Room Air 98.0 07/25/17 01:16 80 154/96 07/25/17 00:45 76 07/25/17 00:43 98.0 76 20 154/96 96 Room Air 98.0 07/24/17 22:52 71 07/24/17 21:47 158/92 07/24/17 21:47 158/92 07/24/17 21:46 80 158/92 Intake and Output 07/24/17 07/25/17 19:00 07:00 # Voids 2 Height (Feet): 5 Height (Inches): 11.00 Weight (Pounds): 265 EENT: PERRL/EOMI Cardiovascular: normal rate Respiratory/Chest: lungs clear Michaelle Vernon MD Jul 25, 2017 21:44
--- NOTE | 2017-07-25 23:49 | Cardiology Progress Note ---
Assessment/Plan Assessment/Plan 1. Accelerated HTN, well controlled, continue the current regimen. 2. Hypertensive heart disease with normal LVEF. 3. CKD. Subjective Subjective Sinus rhythm at 71. Denies chest pain or SOB. No cardiac events. Objective Last 24 Hour Vital Signs Date Time Temp Pulse Resp B/P (MAP) Pulse Ox O2 Delivery O2 Flow Rate FiO2 07/25/17 23:08 119/58 07/25/17 23:06 119/58 07/25/17 22:00 60 119/58 07/25/17 20:32 71 142/75 07/25/17 20:00 98.4 71 20 142/75 98 Room Air 98.4 07/25/17 16:00 77 07/25/17 16:00 98.1 78 20 121/68 99 Room Air 98.1 07/25/17 13:48 70 124/59 07/25/17 13:48 124/59 07/25/17 13:48 124/59 07/25/17 12:00 73 07/25/17 09:13 80 133/80 07/25/17 08:00 74 07/25/17 08:00 98.4 80 20 132/80 97 Room Air 98.4 07/25/17 05:50 62 137/74 07/25/17 05:50 137/74 07/25/17 05:50 137/74 07/25/17 04:00 62 07/25/17 04:00 98.0 72 20 137/74 98 Room Air 98.0 07/25/17 01:16 80 154/96 07/25/17 00:45 76 07/25/17 00:43 98.0 76 20 154/96 96 Room Air 98.0 Intake and Output 07/24/17 07/25/17 19:00 07:00 # Voids 2 2D Echo: LVEF 70%, Mod LVH, Grade I LVDD, RVSP 25 mmHg Objective HEENT: Atraumatic and normocephalic. Anicteric. Pupils are equal, round, and reactive to light and accommodation. Extraocular muscles intact. NECK: JVP less than 5 cm. No carotid bruit. CVS: Normal S1. Loud S2. Positive S4. No murmurs or rubs. LUNGS: Clear to auscultation bilaterally. ABDOMEN: Soft, nontender, and nondistended. No hepatosplenomegaly. Positive bowel sounds. EXTREMITIES: No evidence of edema, clubbing, or cyanosis. WILLIAM MARCH Jul 25, 2017 23:49
[2017-07-26] VITALS: BP 133/70
[2017-07-26 04:00] VITALS: BP 138/94
[2017-07-26] MEDS: HydrALAZINE 50mg tab ORAL SCH (06:19)
[2017-07-26] MEDS: Labetalol 200mg tab ORAL SCH (06:19)
[2017-07-26] MEDS: cloNIDine 0.2mg Tab ORAL SCH (06:19)
[2017-07-26] MEDS: Allopurinol 100mg Tab ORAL SCH (09:39)
[2017-07-26 09:40] VITALS: BP 129/73
--- NOTE | 2017-07-26 12:59 | Nephrology Progress Note ---
Assessment/Plan Problem List: (1) CKD (chronic kidney disease) (2) Hypertensive emergency without congestive heart failure Assessment CKD HTN OOC Plan BP meds adjusted Kidney ZULMA and 2D Echo reviewed urine studies ? Dc fu with out patient MD / Spindle Maker Subjective ROS Limited/Unobtainable: No Objective Objective Last 24 Hour Vital Signs Date Time Temp Pulse Resp B/P (MAP) Pulse Ox O2 Delivery O2 Flow Rate FiO2 07/26/17 09:40 71 129/73 07/26/17 06:19 73 138/94 07/26/17 06:19 138/94 07/26/17 06:19 138/94 07/26/17 04:00 98.4 73 20 138/94 99 Room Air 98.4 07/26/17 04:00 63 07/26/17 00:00 96.8 68 20 133/70 99 Room Air 96.8 07/26/17 00:00 60 07/25/17 23:08 119/58 07/25/17 23:06 119/58 07/25/17 22:00 60 119/58 07/25/17 20:32 71 142/75 07/25/17 20:00 55 07/25/17 20:00 98.4 71 20 142/75 98 Room Air 98.4 07/25/17 16:00 77 07/25/17 16:00 98.1 78 20 121/68 99 Room Air 98.1 07/25/17 13:48 70 124/59 07/25/17 13:48 124/59 07/25/17 13:48 124/59 Intake and Output 07/25/17 07/26/17 19:00 07:00 Intake Total 550 ml Balance 550 ml Intake Oral 550 ml # Voids 3 4 Height (Feet): 5 Height (Inches): 11.00 Weight (Pounds): 265 General Appearance: no apparent distress Objective no change SUKHJINDER CARTWRIGHT 16, 2018 12:59
--- NOTE | 2017-07-26 21:04 | General Progress Note ---
Subjective Neurologic/Psychiatric: Reports: anxiety, depressed, emotional problems Allergies: Coded Allergies: No Known Allergies (Unverified , 07/08/12) Objective Last 24 Hour Vital Signs Date Time Temp Pulse Resp B/P (MAP) Pulse Ox O2 Delivery O2 Flow Rate FiO2 07/26/17 09:40 71 129/73 07/26/17 06:19 73 138/94 07/26/17 06:19 138/94 07/26/17 06:19 138/94 07/26/17 04:00 98.4 73 20 138/94 99 Room Air 98.4 07/26/17 04:00 63 07/26/17 00:00 96.8 68 20 133/70 99 Room Air 96.8 07/26/17 00:00 60 07/25/17 23:08 119/58 07/25/17 23:06 119/58 07/25/17 22:00 60 119/58 Intake and Output 07/25/17 07/26/17 19:00 07:00 Intake Total 550 ml Balance 550 ml Intake Oral 550 ml # Voids 3 4 Height (Feet): 5 Height (Inches): 11.00 Weight (Pounds): 265 Kimani Mast M.D. Jul 26, 2017 21:04
--- NOTE | 2017-07-29 09:43 | Discharge Summary ---
Discharge Summary Hospital Course Date of Admission Jul 23, 2017 at 12:40 Date of Discharge Jul 26, 2017 at 12:30 Admitting Diagnosis HYPERTENSIVE EMERGENCY HPI Chano Armstrong is a 31 year old male who was admitted on Jul 23, 2017 at 12: 40 for Hypertensive Urgency Hospital Course dc summary #[id number] Discharge Medications New Medications: Clonidine HCl (Clonidine HCl) 0.2 Mg Tablet 0.2 MG ORAL EVERY 8 HOURS for 90 Days, TAB Nifedipine Xl* (Procardia Xl*) 30 Mg Tab.er.24 60 MG ORAL Q12HR for 90 Days, TAB Continued Medications: Allopurinol* (Allopurinol*) 100 Mg Tablet 100 MG ORAL DAILY, TAB Hydralazine Hcl* (Hydralazine Hcl*) 50 Mg Tablet 50 MG ORAL EVERY 8 HOURS, TAB Labetalol Hcl* (Normodyne*) 200 Mg Tablet 200 MG ORAL THREE TIMES A DAY, TAB Discharge Condition Upon Discharge: stable Discharge Disposition Patient was discharged to Home (01) Discharge Diagnoses: Discharge Instructions Discharge Instructions Follow up with: follow up with PMD / OP Kidney MD Special Instructions I have been assigned to complete a D/C Summary on this account. I was not involved in the patient management Asha Felix NP ([place]te[place]) Jul 29, 2017 09:43
--- NOTE | 2017-07-29 22:45 | Discharge Summary 2 SIG ---
DATE OF ADMISSION: 07/23/2017 DATE OF DISCHARGE: 07/26/2017 REASON FOR ADMISSION: 31-year-old male, who recently moved to [place] from [place], with past medical history of hypertension and kidney disease, was brought by paramedics with elevated blood pressure and nausea. Upon evaluation, blood pressure -180/110. Creatinine - 2.3. Based on conversation with the [place] physician, his baseline creatinine- 2.4 with glomerular filtration rate of 41. Nausea was reported, but no abdominal pain. No diarrhea. No vomiting. The patient usually takes hydralazine, nifedipine, and labetalol on a regular basis and clonidine as needed. In the emergency department, the patient was treated for blood pressure with IV hydralazine and IV labetalol. Also clonidine oral was given, with no significant improvement in blood pressure. The patient remained asymptomatic. Abdomen was soft. Laboratory workup otherwise was stable. EKG showed normal sinus rhythm. No acute ischemic changes. Troponin was negative. Chest x-ray revealed no acute cardiopulmonary disease. Blood pressure down to 165/111. The patient admitted for further management to telemetry floor with diagnoses of hypertensive emergency without CHF, chronic kidney disease, and nausea. HOSPITAL COURSE: The patient admitted to telemetry floor for close monitoring. Cardiology and Nephrology consults were requested. Blood pressure was managed with hydralazine, nifedipine, labetalol and clonidine was added around the clock. Minoxidil was added on as needed basis. Blood pressure improved prior to discharge. Blood pressure improved the last reading - 129/73. Renal ultrasound revealed no hydronephrosis. Normal echogenicity of bilateral kidneys. Urine studies were done. Renal parameters were closely followed. Creatinine remained at 2.3. Electrolytes were stable. Nephrotoxics were avoided. Lipid panel was stable. Urinalysis with +4 protein. Echocardiogram revealed preserved ejection fraction of 70% and moderate left ventricular hypertrophy, likely secondary to longstanding and possibly uncontrolled hypertension. Right ventricular systolic pressure of 25. Psychiatrist seen and evaluated the patient, diagnosed the patient with anxiety and cannabis dependence and added Ativan as needed. Blood pressure normalized. Troponin times 2 negative. Nausea resolved. The patient was able to tolerate diet. The patient was stable for discharge. FINAL DIAGNOSES: 1. Hypertensive emergency without evidence of congestive heart failure. 2. Chronic kidney disease. 3. Hypertensive heart disease. 4. Nausea. 5. Anxiety. 6. Cannabis dependency. DISCHARGE MEDICATIONS: See medication reconciliation list. DISCHARGE INSTRUCTIONS: The patient was discharged home. Follow up with the primary care provider next week. Michaelle Vernon M.D. I have been assigned to dictate discharge summary on this account and I was not involved in the patient's management. Asha Yirich NHavenPHaven DR: Rashawn JOB#: [id number] CC: JARON
--- NOTE | 2017-07-29 23:45 | Consultation ---
DATE OF CONSULTATION: 07/23/2017 CARDIOLOGY CONSULTATION CONSULTING PHYSICIAN: Oliverio England M.D. REFERRING PHYSICIAN: Michaelle Vernon M.D. REASON FOR CONSULTATION: Management of accelerated hypertension. HISTORY OF PRESENT ILLNESS: This is a very unfortunate 31-year-old gentleman, who is brought in by ambulance for nausea and high blood pressure. The patient has recently moved from [place] where he was hospitalized and was told that he has renal failure due to hypertension. He was told that his kidney function is approximately 20%. He usually takes hydralazine, nifedipine, labetalol, and clonidine. He states that at the day of admission to this hospital, he took all of his blood pressure medication except for clonidine. He is not on dialysis, however, his kidney function is severely affected by hypertension. He states that his kidney function improves with dieting, exercise, and the blood pressure medications. Currently, denies chest pain or shortness of breath, but has complaints of nausea. On arrival to the hospital, his blood pressure was 166/111 and heart rate of 80s. The patient was admitted to telemetry for further evaluation and management. PAST MEDICAL HISTORY: Hypertension and chronic kidney disease. PAST SURGICAL HISTORY: None. MEDICATIONS: List of medication includes, 1. Allopurinol 100 mg p.o. daily. 2. Clonidine 0.2 mg every 8 hours. 3. Catapres 0.1 mg every 6 hours. 4. Hydralazine 50 mg q.8 hours. 5. Labetalol 200 mg three times a day. 6. Nifedipine 30 mg p.o. twice daily. 7. Zofran 4 mg q.8 hours. ALLERGIES: No known drug allergies. FAMILY HISTORY: No premature coronary disease in the first-degree relatives. SOCIAL HISTORY: Denies any tobacco, alcohol, or illicit drug use. REVIEW OF SYSTEMS: A 12-system review was done essentially negative except what is mentioned in the history of present illness. PHYSICAL EXAMINATION: VITAL SIGNS: Blood pressure at time of arrival to the hospital was 166/111, pulse of 80, respirations 16, and O2 saturation 99% on room air. GENERAL: The patient is a very unfortunate 31-year-old gentleman, in no apparent respiratory distress. Alert and oriented x4. HEENT: Atraumatic and normocephalic. Anicteric. Pupils are equal, round, and reactive to light and accommodation. Extraocular muscles intact. NECK: JVP less than 5 cm. No carotid bruit. CVS: Normal S1. Loud S2. Positive S4. No murmurs or rubs. LUNGS: Clear to auscultation bilaterally. ABDOMEN: Soft, nontender, and nondistended. No hepatosplenomegaly. Positive bowel sounds. EXTREMITIES: No evidence of edema, clubbing, or cyanosis. LABORATORY FINDINGS: WBC 8.1, hemoglobin 15.2, hematocrit of 47.5, and platelet count 259,000. Sodium 139, potassium 3.7, chloride 104, bicarbonate 24, BUN of 15, creatinine 2.3, glucose 102, and calcium is 9.2. Troponin I was 0.014. DIAGNOSTIC DATA: Chest x-ray showed cardiomegaly. No active cardiopulmonary disease. A 12-lead electrocardiogram shows sinus rhythm at a rate of [address] and T-wave abnormalities and no evidence of left ventricular hypertrophy. ASSESSMENT AND PLAN: This is a very unfortunate 31-year-old gentleman seen in Cardiology consultation at the request of Dr. Vernon. 1. Accelerated hypertension. I would like to continue the patient on his regimen of hydralazine, nifedipine, labetalol, and clonidine. I will adjust his medication. The patient will also benefit from 2D echocardiography for assessment of LV thickness as well as intracardiac filling pressures as well as left atrial size. We are also interested in evaluation of mitral valve physiology. 2. Chronic kidney disease. 3. Further diagnostic and therapeutic decision will be based on results of 2D echocardiography. I would like to thank, Dr. Vernon, for the courtesy of this consultation. Oliverio England M.D. DR: SERGIO JOB#: [id number] CC:
== END 2017-07-26 12:30 | disposition home or self-care (01) | DRG 199 ==
LOC: EDBD 10:33 → EMR 10:55 → EDBEDREQ 11:20 → 2E 12:40 → EDBEDREQ 13:06 → 2E 07-25 01:09
DX: I16.1 Hypertensive emergency (principal); I12.9 Hypertensive chronic kidney disease with stage 1 through stage 4 chronic kidney disease, or unspecified chronic kidney disease; N18.9 Chronic kidney disease, unspecified; F41.9 Anxiety disorder, unspecified; R11.0 Nausea; F12.20 Cannabis dependence, uncomplicated
CPT/HCPCS: 36415; 71045; 76770; 80053; 80061; 80307; 81001; 82550; 82553; 82977; 83036; 83735; 83880; 84100; 84443; 84484; 84550; 85025; 86140; 93005; 93306; 99285; J2405

== ENCOUNTER 2017-07-26 19:51 | Emergency (ER) | payer OTHER ==
[~2017-07-26] VITALS: Ht 182.9 cm; Wt 95.3 kg
[~2017-07-26 19:51] MED LIST changes: +ADALAT10 MG ORAL; +ALLOPURINOL100 M1 ORAL; +CATAPRES0.1 MG ORAL; +CLONIDINE 0.2M0.2 MG ORAL; +HYDRALAZINE HCL50 MG ORAL; +LABETALOL HCL200 MG ORAL; +PROCARDIA XL30 MG ORAL
[2017-07-26 20:10] VITALS: BP 130/85
--- NOTE | 2017-07-26 21:14 | Emergency Room Report ---
History of Present Illness General Chief Complaint: General Complaint Source: Patient Present Illness HPI Is a 31-year-old Afro[place] male with a history of high blood pressure. He was just needed to the hospital recently and discharged today. He's on for blood pressure medication. At home his blood pressure 180/90. He was concerned so they came in. He is asymptomatic. No nausea no vomiting. Blood pressure now is running in the 120s to 130s systolic. No other complaint. Allergies: Coded Allergies: No Known Allergies (Unverified , 07/08/12) Patient History Past Medical History: see triage record, old chart reviewed, HTN Past Surgical History: none Pertinent Family History: none Social History: Denies: smoking Immunizations: other Reviewed Nursing Documentation: PMH: Agreed, PSxH: Agreed Nursing Documentation-PMH Hx Hypertension: Yes Review of Systems Eye: Denies: eye pain, blurred vision ENT: Denies: ear pain, nose congestion, throat swelling Respiratory: Denies: cough, shortness of breath Cardiovascular: Denies: chest pain, palpitations Gastrointestinal: Denies: abdominal pain, diarrhea, nausea, vomiting Musculoskeletal: Denies: back pain, joint pain Skin: Denies: rash Neurological: Denies: headache, numbness Endocrine: Denies: increased thirst, increased urine Hematologic/Lymphatic: Denies: easy bruising All Other Systems: negative except mentioned in HPI Physical Exam Vital Signs Date Time Temp Pulse Resp B/P (MAP) Pulse Ox O2 Delivery O2 Flow Rate FiO2 07/26/17 20:04 98.0 78 16 130/80 98 Room Air 98.1 vitals unremarkable Sp02 EP Interpretation: reviewed, normal General Appearance: well appearing, no apparent distress, alert Head: normocephalic, atraumatic Eyes: bilateral eye PERRL, bilateral eye EOMI ENT: hearing grossly normal, normal pharynx Neck: full range of motion, supple, no meningismus Respiratory: chest non-tender, lungs clear, normal breath sounds Cardiovascular #1: regular rate, rhythm, no murmur Gastrointestinal: normal bowel sounds, non tender, no mass, no organomegaly, no bruit, non-distended Musculoskeletal: back normal, gait/station normal, normal range of motion Psychiatric: mood/affect normal Skin: warm/dry Medical Decision Making Diagnostic Impression: Primary Impression: Hypertension Qualified Codes: I10 - Essential (primary) hypertension ER Course Patient presents with hypertension at home. Blood pressure stabilized now here. We'll discharge home with reassurance. No evidence of endorgan damage. He does have history of chronic kidney disease with creatinine 2.3. Last Vital Signs Date Time Temp Pulse Resp B/P (MAP) Pulse Ox O2 Delivery O2 Flow Rate FiO2 07/26/17 20:04 98.0 78 16 130/80 98 Room Air 98.1 Status: improved Disposition: HOME, SELF-CARE Condition: Stable Additional Instructions: Follow-up with in 7 days. Return if symptom worsen. SUKHWINDER MARTINEZ M.D. Jul 26, 2017 21:14
[2017-07-26 21:15] VITALS: BP 131/84
[2017-07-26 21:18] VITALS: BP 131/84
== END 2017-07-26 21:30 | disposition home or self-care (01) ==
LOC: EMR 21:22
DX: I10 Essential (primary) hypertension (principal)
CPT/HCPCS: 99283

== ENCOUNTER 2019-04-17 00:54 | Emergency (ER) | payer OTHER ==
[~2019-04-17] VITALS: Ht 182.9 cm; Wt 117.9 kg
[2019-04-17] MEDS ORDERED: BENAZEPRIL HCL20 MG ORAL (01:04)
--- NOTE | 2019-04-17 01:10 | NUR ---
ED Nurse Note: Patient walked into ED c/o SOB that started this morning, states that he feels like he is wheezing accompanied by a cough. BP of 197/130, states that he has not taken his medications for a week. Pt on monitor. ERMD at bedside. Will continue to monitor.
[2019-04-17] MEDS: Promethazine/Codeine 5ml UD ORAL ONE ×2 (01:27→01:37)
--- NOTE | 2019-04-17 01:28 | NUR ---
ED Nurse Note: Pt refused to take phenergan med stating "I do not want codeine. Asked pt if he wanted an alternative med for cough and agreed. ERMD aware. Changed medication to Guaifenesin and pt made aware that there is no codeine in the medication. Pt tolerated the medication. Will continue to monitor.
[2019-04-17] MEDS ORDERED: guaiFENesin 100mg/5ml Liq ud ORAL ONE (01:30)
[2019-04-17] MEDS ORDERED: HydrALAZINE 50mg tab ORAL ONE (01:30)
[2019-04-17 01:33] VITALS: BP 190/121
--- NOTE | 2019-04-17 01:35 | NUR ---
ED Nurse Note: Xray by bedside.
[2019-04-17] MEDS ORDERED: GUAIFENESIN-CO118 M1 ORAL (01:50)
[2019-04-17] MEDS ORDERED: ROBITUSSIN NIG237 ML PO (01:55)
[2019-04-17] MEDS ORDERED: GUAIFENESI100 MG/5 M ORAL (01:55)
--- NOTE | 2019-04-17 02:05 | NUR ---
ER DISCHARGE NOTE: Patient is cleared to be discharged per ERMD, pt is aox4, on room air. pt was given dc and prescription instructions, pt was able to verbalize understanding, pt id band and iv site removed without complications. pt is able to ambulate with steady gait. pt took all belongings.
--- NOTE | 2019-04-17 03:45 | Emergency Room Report ---
History of Present Illness General Chief Complaint: Upper Respiratory Illness Source: Patient Present Illness HPI Patient presents with complaints of cough nasal congestion Reports that he has not taken his blood pressure medications over the past 10 days Patient also reports that he feels he was having a reaction to the benazepril Denies any vomiting or diarrhea denies any headache denies any chest pain Patient feels that the cough has been ongoing now for the past 5 days Denies any blood in the sputum Allergies: Coded Allergies: No Known Allergies (Unverified , 07/08/12) Patient History Past Medical History: see triage record Reviewed Nursing Documentation: PMH: Agreed; PSxH: Agreed Nursing Documentation-PMH Past Medical History: No History, Except For Hx Hypertension: Yes Review of Systems All Other Systems: negative except mentioned in HPI Physical Exam Vital Signs Date Time Temp Pulse Resp B/P (MAP) Pulse Ox O2 Delivery O2 Flow Rate FiO2 04/17/19 01:00 99.7 87 18 96 Room Air 04/17/19 01:25 190/121 Sp02 EP Interpretation: reviewed, normal General Appearance: well appearing, no apparent distress Head: normocephalic, atraumatic Eyes: bilateral eye PERRL, bilateral eye EOMI ENT: hearing grossly normal, normal pharynx, TMs + canals normal, uvula midline Neck: full range of motion, supple, no meningismus, no bony tend Respiratory: lungs clear, normal breath sounds, no rhonchi, no respiratory distress, no retraction, no accessory muscle use Cardiovascular #1: normal peripheral pulses, regular rate, rhythm, no edema, no gallop, no JVD, no murmur Gastrointestinal: normal bowel sounds, non tender, soft, no mass, no organomegaly, non-distended, no guarding, no hernia, no pulsatile mass, no rebound Genitourinary: no CVA tenderness Musculoskeletal: normal inspection Neurologic: motor strength/tone normal, 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, oriented x3 , sensory intact, responsive Psychiatric: mood/affect normal Skin: no rash Lymphatic: normal inspection, no adenopathy Medical Decision Making Diagnostic Impression: Primary Impression: Upper respiratory infection ER Course Patient is a fairly complex patient with multiple differential to consideration including but not limited to cardiac cardiopulmonary and vascular emergencies Patient's blood pressure is elevated however patient has been noncompliant with his hypertensive medications with the lack of any endorgan complaints I did not feel extensive work-up was required at this time X-ray was obtained did not show any acute process And patient appears to have Clinical findings consistent with URI and will have conservative outpatient trial Rhythm Strip Diag. Results EP Interpretation: yes Rate: 82 Rhythm: NSR, no PVC's, no ectopy Chest X-Ray Diagnostic Results Chest X-Ray Diagnostic Results : Chest X-Ray Ordered: Yes # of Views/Limited/Complete: 1 View Indication: Chest Pain EP Interpretation: Yes Interpretation: no consolidation, no effusion, no pneumothorax Impression: No acute disease Electronically Signed by: Michaelle Copeland DO Last Vital Signs Date Time Temp Pulse Resp B/P (MAP) Pulse Ox O2 Delivery O2 Flow Rate FiO2 04/17/19 01:33 99.7 18 190/121 96 Room Air 04/17/19 01:33 85 Status: improved Disposition: HOME, SELF-CARE Condition: Improved Scripts Guaifenesin* (GUAIFENESIN) 100 Mg/5 Ml Liquid 5 ML ORAL QHS for 7 Days, #120 ML 0 Refills Prov: Michaelle Copeland DO 04/17/19 Dextromethorphan Hb/Doxylamine (ROBITUSSIN NIGHTTIME COUGH DM) 237 Ml Liquid 10 ML PO QHS for 7 Days, ML Prov: Michaelle Copeland DO 04/17/19 Referrals: MIGUEL A CAMEJO,REFERRING (PCP) [facility] Patient Instructions: Upper Respiratory Infection, Adult Additional Instructions: Patient is provided with the discharge instructions notified to follow up with primary doctor in the next 2-3 days otherwise return to the er with any worsening symptoms. Please note that this report is being documented using [email or web address] technology. This can lead to erroneous entry secondary to incorrect interpretation by the dictating instrument. Michaelle Copeland DO Apr 17, 2019 03:45
--- NOTE | 2019-04-17 13:08 | Diagnostic Imaging Report ---
Indication: Shortness of Technique: One view of the chest Comparison: 07/23/2017 Findings: The heart is enlarged. The lungs pleural spaces are clear. There is no significant interim change Impression: Cardiomegaly. No acute process
[2019-04-17] MEDS ORDERED: ATIVAN0.5 MG ORAL (22:22)
== END 2019-04-17 02:00 | disposition home or self-care (01) ==
LOC: EMR 01:56
DX: J06.9 Acute upper respiratory infection, unspecified (principal); I10 Essential (primary) hypertension
CPT/HCPCS: 71045; Z7502; 99283